=== PATIENT | female | born 1965 | race Caucasian/White ===

== ENCOUNTER 2017-06-12 14:43 | Emergency (ER) | payer BC, SELFPAY ==
[2017-06-12 14:45] VITALS: BP 162/102; PULSE 102; RESP 16; TEMP 37.2; O2SAT 97; BMI 38.9
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
[2017-06-12 16:31] VITALS: BP 103/87; PULSE 91; RESP 16; O2SAT 99
[2017-06-12] MEDS: Ibuprofen 600 MG Tablet PO (16:32)
--- NOTE | 2017-06-12 16:43 | ED.RN ---
REVIEWED D/C INSTRUCTIONS, FOLLOW UP CARE, PRESCRIPTION, AND S/S THAT WOULD WARRANT A RETURN TO THE ED WITH PT. PT VERBALIZED AN UNDERSTANDING AND DENIES FURTHER QUESTIONS FOR THIS RN. PT SKIN P/W/D, RES EVEN AND UNLABORED, PT A&O X 3, NO DISTRESS NOTED. PT AMBULATED OUT OF ED, GAIT STEADY.
== END 2017-06-12 16:44 | disposition home or self-care (01) ==
LOC: ED 16:19
PROVIDERS: Emergency Provider Emergency Medicine; Family Provider Family Medicine; PCP Family Medicine
DX: S39.012A Strain of muscle, fascia and tendon of lower back, initial encounter (principal); F32.9 Major depressive disorder, single episode, unspecified; G47.33 Obstructive sleep apnea (adult) (pediatric); Z79.899 Other long term (current) drug therapy; V43.52XA Car driver injured in collision with other type car in traffic accident, initial encounter; Y93.I9 Activity, other involving external motion; Y92.410 Unspecified street and highway as the place of occurrence of the external cause; Y99.8 Other external cause status
CPT/HCPCS: 99283

== ENCOUNTER → 2017-10-30 12:09 | Outpatient (CLI) | payer BC, SELFPAY ==
--- NOTE | 2017-10-30 12:20 | RAD_ITS ---
STUDY: BARIUM ENEMA. REASON FOR EXAM: Female, 52 years old. Incomplete colonoscopy. Possible sigmoid stricture. FLUOROSCOPY TIME (if supplied): (1:44) minutes/seconds TECHNIQUE: A scouts film was obtained. Following this, barium was introduced retrograde through the rectum. Entire colon was opacified. COMPARISON: None. Scattered diverticula are seen at that site. This may represent narrowing secondary to diverticulitis. An underlying neoplastic process should be ruled out. A follow-up CT scan is recommended. FINDINGS: On the scouts film, gas is seen throughout the colon. The patient is status post cholecystectomy. Barium was introduced retrograde through the rectum. Entire colon was opacified. Short segment narrowing of the sigmoid colon is seen. This measures 4.8 cm. Scattered diverticula are seen at that site. This may represent narrowing secondary to diverticulitis. An underlying neoplastic process should be ruled out. A follow-up CT scan is recommended. RAD/Barium Enema No Air Cont IMPRESSION: Short segment narrowing of the sigmoid colon as described with evidence of scattered sigmoid diverticula. This may represent changes secondary to diverticulitis. A neoplastic process cannot be excluded. Follow-up with a CT scan is recommended. Electronically Signed: Fabian Wilson MD at 14:03 EDT Tel [phone], Service support ,
== END ==
PROVIDERS: Family Provider Family Medicine; PCP Family Medicine; Visit Provider Internal Medicine Gastroenterology
DX: K57.30 Diverticulosis of large intestine without perforation or abscess without bleeding (principal)
CPT/HCPCS: 74270

== ENCOUNTER 2017-11-02 10:51 | Emergency (ER) | payer BC, SELFPAY ==
[2017-11-02 10:53] VITALS: BP 167/104; PULSE 118; RESP 17; TEMP 37.3; O2SAT 95; BMI 37.3
--- NOTE | 2017-11-02 11:07 | CT_ITS ---
STUDY: CT ABDOMEN AND PELVIS WITH CONTRAST REASON FOR EXAM: Female, 52 years old. 2 day history of right lower quadrant pain. Recent colonoscopy and barium enema. Narrowing of the sigmoid colon. RADIATION DOSAGE (If Supplied By Facility): CTDIvol = ( 16.53 ) mGy, DLP = ( 1247.95 ) mGycm TECHNIQUE: Transaxial images were obtained from the dome of the diaphragm to the symphysis pubis with oral contrast. 100 ml of Isovue 300 contrast was administered. Sagittal and coronal images were reconstructed. Individualized dose optimization techniques were used for this CT. COMPARISON: None. FINDINGS: Minimal increased markings at the left lung base is suggestive of left basilar atelectasis. The visualized portions of the heart are within normal limits. There is a 1 cm well-defined hypodensity in the medial aspect of the dome of the right lobe of liver most likely represent a small cyst. There are surgical clips in the gallbladder fossa consistent with a prior cholecystectomy. Normal spleen. Normal pancreas. Normal bilateral adrenal glands. Normal right kidney. Normal left kidney. There is a small hiatal hernia. Normal small intestine. There is evidence of scattered diverticula in the right hemicolon. Diffuse circumferential narrowing with inflammatory changes involving the right hemicolon and cecum. This may represent diverticulitis secondary to the right colon diverticula. A small amount of barium is seen within the proximal portion of the appendix. There is diffuse circumferential wall thickening of the sigmoid colon with multiple diverticula. No significant perisigmoid inflammatory changes are seen. There is non-visualization of the appendix. Normal abdominal aorta. Normal inferior vena cava. There is borderline retroperitoneal lymphadenopathy with enlarged nodes no greater than 10mm in the short axis diameter. Normal urinary bladder. Fibroid uterus. Normal abdominal wall. Normal osseous structures. CT/Abdomen/Pelvis WITH Contrast IMPRESSION: Inflammatory changes involving the right hemicolon worse in the region of the ascending colon and cecum with thickening. Diverticula are seen within the right hemicolon with a small amount of residual barium within it. Diverticulitis of the right; should be ruled out. Electronically Signed: Fabian Wilson MD at 13:56 EDT Tel [phone], Service support ,
--- NOTE | 2017-11-02 11:08 | ED.VISSUMM ---
- ER Visit Summary Date of Service: 11/02/17 Chief Complaint: Abdominal pain History of Present Illness: The patient is a 52 F 3 days status post colonoscopy, apparently she had some sort of stricture and was sent for a barium enema, she presents with worsening right lower quadrant abdominal pain. She does not feel febrile. No diarrhea or constipation in fact she is making bowel movements. No nausea or vomiting. No back pain or flank pain. No urinary symptoms. Physical Examination: She appears in slight distress Moist mucous membranes, no obvious facial deformity No C-spine tenderness supple neck. Regular rate and rhythm without any obvious murmurs Clear lungs bilaterally speaking in full sentences without any obvious respiratory distress Abdomen soft with right lower quadrant tenderness lateral to McBurney's, no guarding or rebound. No pelvic or suprapubic pain. No flank pain. Moves all extremities without any difficulty or pain. Skin does not show any obvious rashes or lesions, no trauma. Alert oriented ?3 with no gross focal deficit Emergency Department Course and Treatment: Patient is found to have very mild diverticulitis, she has slight leukocytosis. I will treat her with antibiotics. She has had these symptoms for some time, I will refer to general surgery for further workup. Disposition: Discharged in stable condition Impression: Acute diverticulitis This note was generated with [employer] dictation software. It may contain incorrect words, spelling, and punctuation that were not noted in review of the chart prior to signing ED Disposition - Plan for ED Patient: Disposition: Home or Assisted Living Chief Complaint: Abd Pain Instructions: ED Diverticulitis Prescriptions: Hydrocodone Bitart/Apap 5-325 [[place] 5/325] 1 - 2 tab PO Q4H PRN PRN 5 Days #12 tab PRN Reason: Pain Ciprofloxacin [Cipro] 500 mg PO BID #14 tab Metronidazole [Flagyl] 500 mg PO Q6H #56 tab Referrals: Nelson Helton MD [STAFF PHYSICIAN] - 3-5 Days
--- NOTE | 2017-11-02 11:11 | ED.DCSUM_ITS ---
- ER Visit Summary Date of Service: 11/02/17 Chief Complaint: Abdominal pain History of Present Illness: The patient is a 52 F 3 days status post colonoscopy , apparently she had some sort of stricture and was sent for a barium enema, she presents with worsening right lower quadrant abdominal pain. She does not feel febrile. No diarrhea or constipation in fact she is making bowel movements. No nausea or vomiting. No back pain or flank pain. No urinary symptoms. Physical Examination: She appears in slight distress Moist mucous membranes, no obvious facial deformity No C-spine tenderness supple neck. Regular rate and rhythm without any obvious murmurs Clear lungs bilaterally speaking in full sentences without any obvious respiratory distress Abdomen soft with right lower quadrant tenderness lateral to McBurney's, no guarding or rebound. No pelvic or suprapubic pain. No flank pain. Moves all extremities without any difficulty or pain. Skin does not show any obvious rashes or lesions, no trauma. Alert oriented ?3 with no gross focal deficit Emergency Department Course and Treatment: Patient is found to have very mild diverticulitis, she has slight leukocytosis. I will treat her with antibiotics. She has had these symptoms for some time, I will refer to general surgery for further workup. Disposition: Discharged in stable condition Impression: Acute diverticulitis This note was generated with [employer] dictation software. It may contain incorrect words, spelling, and punctuation that were not noted in review of the chart prior to signing ED Disposition - Plan for ED Patient: Disposition: Home or Assisted Living Chief Complaint: Abd Pain Instructions: ED Diverticulitis Prescriptions: Hydrocodone Bitart/Apap 5-325 [[place] 5/325] 1 - 2 tab PO Q4H PRN PRN 5 Days #12 tab PRN Reason: Pain Ciprofloxacin [Cipro] 500 mg PO BID #14 tab Metronidazole [Flagyl] 500 mg PO Q6H #56 tab Referrals: Nelson Helton MD [STAFF PHYSICIAN] - 3-5 Days
--- NOTE | 2017-11-02 11:14 | RAD_ITS ---
STUDY: X-RAY - ABDOMEN/PELVIS REASON FOR EXAM: Female, 52 years old. Upper right-sided abdominal pain. TECHNIQUE: Two AP supine views of the abdomen and pelvis. COMPARISON: None. FINDINGS: Normal visualized lung bases. Moderate amount of fecal material seen throughout the colon. Scattered barium is seen within the diverticula in the sigmoid colon. The visualized liver, spleen and kidneys are grossly normal in size and morphology. The patient is status post cholecystectomy. Normal soft tissue structures. Normal visualized osseous structures. RAD/Abdomen Single View IMPRESSION: Moderate amount of fecal material is seen in the colon. Small amount of barium is seen within scattered sigmoid diverticula. Electronically Signed: Fabian Wilson MD at 13:11 EDT Tel [phone], Service support ,
[2017-11-02] MEDS: Morphine 4 MG/ML Syringe IV (11:24)
[2017-11-02] MEDS: Ondansetron 4 MG/2 ML Vial IV (11:24)
[2017-11-02] MEDS: 0.9% Normal Saline 1,000 ML 1000 ML IV (11:24)
[2017-11-02 11:28] LABS: Bacteria 0 SEEN /hpf (None Seen); Mucous, Urine 0 SEEN /hpf (<or=2+); Red Blood Cells-Urine 0 SEEN /hpf (0-5); Squamous Epithelial Cells - UA 0 SEEN /hpf (5-10)
[2017-11-02 11:31] LABS: Color, Urine Yellow (Yellow); Glucose, Dipstick Normal (Normal); Ketone-Dipstick Negative (Negative); Leukocyte Esterase-Dipstick Negative /ul (Negative); Nitrite-Dipstick Negative (Negative); Occult Blood-Urine 25 /ul (Negative); Protein-Dipstick Negative (Negative); Specific Gravity, Urine 1.005 (1.002-1.030); Urine Bilirubin Dipstick Negative (Negative); Urine Clarity Clear (Clear); Urine Urobilinogen Normal (Normal)
[2017-11-02 11:37] LABS: Absolute Lymphocyte Count 1.41 X10^3/ul (0.83-4.51); Absolute Neutrophil Count 8.6 X10^3/uL (2.0-7.7); Basophil# 0.01 X10^3/uL; Basophil% 0.1 % (0-1); Eosinophil# 0.01 X10^3/uL; Eosinophils% 0.1 % (0-5); Hematocrit 39.4 % (37-47); Hemoglobin 12.7 g/dl (12.0-15.0); Lymphocyte # 1.41 X10^3/ul (4.0); Lymphocyte % 12.6 % (19-41); Mean Corp Hgb Conc 32.2 g/gl (32-36); Mean Corpuscular Hgb 26.6 pg (27.0-32.0); Mean Corpuscular Volume 82.4 fL (81-99); Mean Platelet Vol. 10.3 fl (6.2-12.0); Monocyte# 1.17 X10^3/uL; Monocyte% 10.4 % (0-10); Neutrophil % 76.7 % (47-70); POSITIVE COUNT NO; POSITIVE DIFFERENTIAL NO; POSITIVE MORPHOLOGY NO; Platelet Count 252 K/mm3 (150-450); RBC Distribution Width CV 15.4 % (11.6-14.6); RBC Distribution Width SD 46.5 fl (35.1-43.9); Red Blood Count 4.78 M/mm3 (4.2-5.4); White Blood Count 11.2 K/mm3 (4.4-11.0)
[2017-11-02 11:40] LABS: White Blood Cells 0-5 SEEN /hpf (0-5)
[2017-11-02 11:57] LABS: ALB/GLOB Ratio 0.6 RATIO (0.9-2.4); AST(SGOT) 19 U/L (15-37); Alanine Aminotransfer ALT/SGPT 36 U/L (13-56); Alkaline Phosphatase 116 U/L (45-117); Anion Gap 8 (5-15); BUN 8 mg/dL (7-18); BUN/Creat Ratio 10.1 RATIO (10-20); Calcium,Total 8.6 mg/dL (8.5-10.1); Chloride 106 mmol/L (98-107); Creatinine, Serum 0.79 mg/dL (0.55-1.02); EST Glomerular Filtration Rate 80 mL/min (>60); Est Glom Filt Rate - Afr Amer 97 mL/min (>60); Estimated Creatinine Clearance 64.39 ml/min; Globulin 4.9 g/dL (2.2-4.2); Glucose 87 mg/dL (74-106); Lipase 126 U/L (73-393); Potassium 3.5 mmol/L (3.5-5.1); Protein, Total 7.9 g/dL (6.4-8.2); Sodium Level 141 mmol/L (136-145)
[2017-11-02 13:56] VITALS: BP 160/89
[2017-11-02 14:31] VITALS: BP 153/84; PULSE 78; RESP 18
== END 2017-11-02 14:32 | disposition home or self-care (01) ==
PROVIDERS: Emergency Provider Emergency Medicine; Family Provider Family Medicine; PCP Family Medicine
DX: K57.92 Diverticulitis of intestine, part unspecified, without perforation or abscess without bleeding (principal)
CPT/HCPCS: 74018; 74177; 80053; 81001; 83690; 85025; 96361; 96374; 96375; 99284; J7030; Q9967; J2405

== ENCOUNTER 2018-01-14 05:42 | Inpatient (IN) | payer BC, SELFPAY ==
[2018-01-08 10:54] VITALS: BP 143/91; PULSE 84; RESP 17; TEMP 37.4; O2SAT 97; BMI 38.1
[2018-01-14] VITALS (13 sets, daily range): BP systolic 105–148; BP diastolic 70–99; PULSE 83–108; RESP 14–18; TEMP 36.6–37.1; O2SAT 92–100; BMI 38.1; BMI 35.8
[2018-01-14] MEDS: Gabapentin 600 MG Tablet PO (06:43)
[2018-01-14] MEDS: Acetaminophen 500 MG Tablet 1000 MG PO ×3 (06:43→23:07)
[2018-01-14 06:56] LABS: Bedside Glucose 98 mg/dL (70-110)
--- NOTE | 2018-01-14 07:30 | OV_PTH ---
PATIENT: REJI FELIX LOC: [facility] U#:[id number] AGE/SX: 52/F ROOM: [facility]321 RE01/14/[address]: Dr. Nelson Helton MD : 1965 BED: 1 DIS: 01/22/2018 SPEC #: [id number] RECD: 01/14/18 14:50 STATUS: EDILSON REKenzie #: [id number] JHON: 01/14/18 07:[address]: Nelson Helton DEPT: SURGICAL PATHOLOGY RECD BY: Nelson Walker ENTERED: 01/15/18 04:38 SP TYPE: OVARY OTHR DR: Radha Lujan, INCUBATOR OPERATOR-C Tissues: A - OVARIAN CYST B - Colon, NOS C - Colon, NOS D - Colon, NOS E - Colon, NOS Procedures: Surgery Specimen Level III Surgery Specimen Level IV Surgery Specimen Level V HEADER OPERATION: Laparoscopic partial right hemicolectomy, laparoscopic right PRE-OP DIAGNOSIS: Diverticulitis, partial intestinal obstruction TISSUE SUBMITTED: A ? Right fallopian tube, ovary and cyst, B ? Sigmoid colon, C ? Proximal end sigmoid colon, D ? Distal end sigmoid colon, E ? Right colon and staple line MICROSCOPIC DIAGNOSIS A. Right fallopian tube, ovary and cyst: Fallopian tube - no pathologic diagnosis. Cyst ? simple cyst, consistent with paratubal cyst. Ovary ? mesothelial inclusion cyst with focal calcifications. B. Sigmoid colon, colectomy: Diverticulosis and diverticulitis. Pericolonic lymph node with reactive changes. A fibrous nodule, pericolonic adipose tissue with focal calcification. Smaller segment of bowel, no pathologic diagnosis. C. Proximal end sigmoid colon: Colonic donut with focal mucosal congestion and hemorrhage. D. Distal end sigmoid colon: Colonic donut, no pathologic diagnosis. E. Right colon and staple line: Diverticulosis and diverticulitis. Appendix, no pathologic diagnosis. Pericolonic lymph node with reactive changes. Staple line, no pathologic diagnosis. SJ:ck 01/16/18 MICROSCOPIC DESCRIPTION Slides are reviewed. GROSS DESCRIPTION A - Received in fixative is one container labeled with the patient's name and designated right fallopian tube, cyst and ovary. The specimen consists of fallopian tube, detached fragments of fimbrial end of fallopian tube, detached cyst and ovary. The fallopian tube measures 3 cm in length and 0.6 cm in diameter. Sections reveal unremarkable cut surfaces. The detached fragment of fallopian tube measures 1.5 x 1 x 0.3 cm. The cyst measures 2 x 1.5 x 1.5 cm. It contains clear fluid. The cyst wall is smooth without any papillation. The ovary measures 2 x 1.5 x 1.3 cm. Sections reveal unremarkable cut surfaces. Banana Grader sections are submitted in three cassettes as follows: 1 ? fallopian tube including fimbrial end, 2 ? cyst, 3 ? ovary. / : 01/14/18 B - Received in fixative is one container labeled with the patient's name and designated sigmoid colon. The specimen consists of previously opened segment of colon with attached pericolonic adipose tissue measuring 15 cm in length. No mucosal lesion is identified. Sections reveal multiple diverticula. A few of the diverticula appear to rupture. A few of the diverticula are also filled with fecal material. Sections of the pericolonic adipose tissue do not reveal obviously enlarged lymph nodes. Also present in the container is a segment of bowel with attached adipose tissue measuring 4 cm in length. Both resection margins are stapled. No mucosal lesion is identified. Banana Grader sections are submitted in six cassettes as follows: 1-5 ? largest segment of colon (1 - resection margins, stapled resection margin is inked black, 2-4 ? diverticula, 5 ? pericolonic adipose tissue with possible lymph node), 6 ? smaller segment of bowel. / : 01/15/18 C - Received in fixative is one container labeled with the patient's name and designated proximal end sigmoid colon. The specimen consists of a donut-shaped piece of colonic tissue measuring 2 x 2 x 1 cm. No mass lesion is identified. The entire specimen is submitted in one cassette. / : 01/14/18 D - Received in fixative is one container labeled with the patient's name and designated distal and sigmoid colon. The specimen consists of a colonic tissue measuring 4 x 1 x 0.5 cm. Multiple lesions are noted. Banana Grader sections are submitted in one cassette. / : 01/14/18 E - Received in fixative is one container labeled with the patient's name and designated right colon and staple line. The specimen consists of a right hemicolectomy specimen consisting of cecum with ascending colon, segment of small intestine and also an appendix. The cecum with ascending colon measures 15 cm in length. The segment of small intestine measures 20 cm in length and the appendix measures 6 cm in length and 0.5 cm in diameter. Both resection margins are stapled. Also present in the container are two donut-shaped pieces of tissue consisting of staple line measuring 2.5 x 1 x 1 cm and 4 x 1.5 x 2.5 cm. Sections of the appendix reveal pin-point lumen. No mucosal lesion is identified. Sections reveal a few diverticula. No obviously ruptured diverticula are noted. The serosal surface 4 cm away from the distal resection margin shows congested area. The serosal surface close to the cecum also shows focally congested taz. Sections of the pericolonic adipose tissue reveal a large lymph node with hemorrhagic center measuring 1.5 cm in greatest dimension. Banana Grader sections are submitted in 12 cassettes as follows: 1-8 ? colectomy specimen (1 ? proximal and distal resection margins, 2 ? appendix, 3-5 ? serosal surface with congested area, 6 - pest control service representative section of small and large intestine, 7 ? ileocecal valve, 8 ? pericolonic lymph node), 9 ? pest control service representative sections staple lines, 10-12 - diverticula. / SJ:ck 01/15/18 TC:5 CPT: 79318 x2, 77283, 87076 x2
[2018-01-14] MEDS: Lidocaine/D5W 2,000 MG/250 ML IV.SOLN 28.38 MG IV (07:40)
[2018-01-14] MEDS: Lubricating Jelly 60 GM Tube 30 GM TOPICAL (08:20)
[2018-01-14] MEDS: Bupivacaine Mpf 0.5% 30 ML VIAL (12:13)
--- NOTE | 2018-01-14 12:16 | OP.PCM_ITS ---
Report of Operation Date of Procedure: 01/14/18 Pre-Operative Diagnosis: low sigmoid diverticular stricture, right sided diverticulitis Post-Operative Diagnosis: low sigmoid diverticular stricture, right sided diverticulitis Surgery/Procedure Performed:: lap low anterior resection with 29CEEA stapled anastomosis, laparoscopic right hemicoletomy. medical transcription supervisor: Ashley Krishnamurthy Type of Anesthesia:: General Anesthesiologist: Ezequiel Garzon - ASA3 Specimen's removed: right colon, sigmoid x 2 Drains: cole - 200 Estimated Blood Loss (mL): 150 Fluids Replaced: 1400 Description of Procedure: The patient was brought to the operating suite. Sign in was performed verifying patient, site, procedure, position, and DVT prophylaxis with SCDs. Patient received Cefotetan 2gm. Preoperative bowel prep of mechanical and antibiotic comprised of GoLYTELY and then neomycin and Flagyl 1 g 3 doses evening before was given. Following induction of general anesthetic, the patient was placed in a modified lithotomy position and care being taken to or by pressure points in the legs and arms. An upper body strap was placed and a upper body warmer was placed. A Cole catheter was placed. A rectal washout was performed with dilute Betadine solution. The patient?s abdomen and perineal area were then prepped and draped in the usual fashion. Timeout was performed verifying patient, site, position. Local anesthetic was injected above the umbilicus. Incision made and dissection carried down to the umbilical root fascia. 2 stay sutures were placed. Incision made in the fascia, the peritoneum entered under direct visualization. A 10 mm Fenton trocar was inserted and secured with the stay sutures. Pneumoperitoneum to 15 mmHg was insufflated. 3 5mm ports were placed in the midline and later in the left paramedian position and a 10/12 port were placed in the right lower quadrant inferior laterally. Adhesions were taken down using Harmonic scalpel. Visual inspection revealed a normal-appearing liver with no significant abnormalities. The bulky sigmoid with diverticulitis was seen in the pelvis with adhesions to the left lower quadrant. These adhesions were taken down bluntly and sharply and using the Harmonic scalpel. Once this was completed, mobilization the avascular plane was undertaken from the ascending colon down to the area of the mid sigmoid with care taken at mobilization of the level of the iliac vessels then further down to the left lateral rectal peritoneal reflection. As mobilization progressed, the left and right ureters were able to be visualized and manipulated assuring that the ureters were intact.. Once this left-sided mobilization was undertaken, a window was made in to the bare area just proximal to the inferior mesenteric vessels As dissection was continued, the KIP branches were identified and divided with the Harmonic scalpel. Once this was fully divided and surrounded with dissection carried down to the area posterior to the rectum, a 60 mm echelon stapler with a thick load was placed and fired to transect the rectum. Mobilization the avascular plane was undertaken from the base of the cecum up and around the hepatic flexure. Division of the lesser sac from the midline to the hepatic flexure was undertaken. When this was fully mobilized. The duodenum was visualized from the right flank region. Next, the terminal ileum area was brought up and a cleavage point noted in the mesentery. Harmonic Scalpel was used to create a window in the terminal ileal mesentery and division was taken down to the ileocolic root. Next the transverse colon was grasped and the vasculature coming from the middle colic vessel was identified. A window was made in the bare area proximal to the middle colic vessels just overlying the duodenal sweep. This was also fully divided. Dissection was then carried out at the ileal colic vessel root. The artery and vein were identified and doubly clipped proximally and doubly clipped distally with Hem-o- andreea clips. With full dissection of the mesentery and full mobilization the colon, the umbilical incision was extended and a wound protector placed. The sigmoid colon were delivered through the wound protector. At this point at the planned transection point of the proximal sigmoid colon, the pericolonic were fully mobilized to the margin of the bowel using the harmonic scalpel. The bowel was transected family with a 10 blade scalpel. A 29 mm CEA circular stapler anvil was then placed in the descending colon region and a 2-0 Prolene pursestring suture was used to close the bowel around the anvil. The bowel did easily make it to the pelvis, At this point, I proceeded down to the rectum. Rigid proctoscopy was performed after flooding the pelvis with saline. Insufflation demonstrated no leak at the rectal staple line - but there did seem to be a narrowing just distal to the staple line. Following this, the rectal stump was further dissected and redivided with a thick load echelon stapler. Repeat proctoscopy was performed.. The staple line was felt to be approximately 15 cm. Next the 29 CEA stapler was lubricated and placed through the rectum up to the staple line. The spike was then opened just anterior to the previous echelon stapler line and the anvil properly seated onto the stapler and brought down to mid gap. The stapler was fired released and withdrawn from the rectum. The proximal and distal doughnuts were noted to be intact. Repeat proctoscopy was again performed again with the pelvis being flooded with saline. Air left in the rectum with insufflation and there was no intra-abdominal leakage noted. The anastomosis was noted to be at 15 cm from the anal verge. The terminal ileum and cecum ascending colon part of the transverse colon were delivered through the wound protector. Complete division of the mesentery to the bowel was undertaken at both sites. The bowel was transected with an intestinal load echelon stapler. On this a functional stapled end-to-end anastomosis was performed between the ileum and transverse colon with an echelon stapler. The staple line was checked for hemostasis and following this the anastomosis closed with a TA stapler creating a wide triangle opening that was easily palpable. A 3-0 silk suture was used to take tension off the apex of the staple line. Gown and gloves were changed. Pneumoperitoneum was released and the umbilical incision was closed with running 0 PDS sutures with the 2 sutures meeting and closed just above the umbilicus. Pneumoperitoneum was reestablished. The right lower quadrant fascial defect was closed with a running 0 PDS suture. Visual inspection revealed no material adhered to the midline closure. The 5mm ports were removed under direct visualization with no signs of bleeding. Pneumoperitoneum was released. Right lower quadrant fascial suture was secured. Subcutaneous tissue at the level of the umbilicus reapproximated with interrupted 3-0 Vicryl sutures. Skin was closed with interrupted and running 4- 0 Monocryl subcuticular sutures. Steri-Strips and bandages were applied. The patient was taken from lithotomy position and placed in the standard supine position. All sponge and instrument counts were correct. The patient was extubated. The patient was brought to recovery room in stable condition. - Admit VTE Documentation VTE Present on Admission: No VTE Mechan Device Prophylaxis: SCD's VTE Pharm Prophylaxis ordered?: No
[2018-01-14] MEDS: Lactated Ringers 1,000 ML 40 ML IV ×2 (13:10→23:57)
[2018-01-14] MEDS: Ketorolac 15 MG/ML Vial IV ×2 (18:30→23:07)
[2018-01-14] MEDS: busPIRone 15 MG TABLET 7.5 MG PO (22:53)
[2018-01-15] MEDS: Ketorolac 15 MG/ML Vial IV ×3 (05:40→18:19)
[2018-01-15] MEDS: Acetaminophen 500 MG Tablet 1000 MG PO ×2 (05:40→11:55)
[2018-01-15 05:47] VITALS: BP 127/68; PULSE 81; RESP 18; TEMP 36.9; O2SAT 95
[2018-01-15 06:29] LABS: Hematocrit 36.5 % (37-47); Hemoglobin 11.9 g/dl (12.0-15.0); Mean Corp Hgb Conc 32.6 g/gl (32-36); Mean Corpuscular Hgb 27.5 pg (27.0-32.0); Mean Corpuscular Volume 84.3 fL (81-99); Mean Platelet Vol. 11.4 fl (6.2-12.0); Platelet Count 235 K/mm3 (150-450); RBC Distribution Width SD 45.7 fl (35.1-43.9); Red Blood Count 4.33 M/mm3 (4.2-5.4); White Blood Count 12.4 K/mm3 (4.4-11.0)
--- NOTE | 2018-01-15 06:29 | PCM.PN.SRG ---
Subjective: pain approximately 3 out of 10, doing well - Physical Exam General: Alert, Oriented x3 Lungs: Clear to auscultation, Normal air movement Cardiovascular: Regular rate, No murmurs Abdomen: Soft, Non Tender, Bowel Sounds Not Present Vital Signs Temp Pulse Resp BP Pulse Ox 98.4 F 81 18 127/68 H 95 01/15/18 05:47 01/15/18 05:47 01/15/18 05:47 01/15/18 05:47 01/15/18 05:47 Oxygen Flow Rate (L/min) 6 Oxygen Delivery Method Room Air Weight: 94.6 kg Body Mass Index (BMI) 35.8 Intake and Output for Last 24 Hours 01/13/18 01/14/18 01/15/18 23:59 23:59 23:59 Intake Total 1885 / 1885 937 / 937 Output Total 1000 / 1000 1300 / 1300 Balance 885 / 885 -363 / -363 Laboratory Tests Past 24 Hrs 01/15/18 01/15/18 05:54 05:54 WBC Pending RBC Pending Hgb Pending Hct Pending MCV Pending MCH Pending MCHC Pending RDW Pending RDW Differential Pending Plt Count Pending Sodium Pending Potassium Pending Chloride Pending Carbon Dioxide Pending Anion Gap Pending BUN Pending Creatinine Pending Est GFR (MDRD) Af Amer Pending Est GFR (MDRD) Non-Af Pending BUN/Creatinine Ratio Pending Glucose Pending Calcium Pending POC Glucose 01/14/18 06:29 POC Glucose 98 Medical Necessity - Tobacco Use Smoking Status: Never smoker Assessment/Plan postoperative day #1 status post laparoscopic low anterior resection and laparoscopic right hemicolectomy for 2 sites of diverticulitis. The patient currently on ERAS protocol. Will encourage patient to be careful with oral intake due to some degree of burping and no bowel sounds. We'll encourage ambulation. Will DC Garnica catheter today. Encourage incentive spirometer use.
[2018-01-15 06:30] LABS: Scan Indicated on CBC? Y/N NO
[2018-01-15 06:38] LABS: Anion Gap 8 (5-15); BUN 11 mg/dL (7-18); BUN/Creat Ratio 11.3 RATIO (10-20); Calcium,Total 7.9 mg/dL (8.5-10.1); Chloride 108 mmol/L (98-107); Creatinine, Serum 0.98 mg/dL (0.55-1.02); EST Glomerular Filtration Rate 63 mL/min (>60); Est Glom Filt Rate - Afr Amer 76 mL/min (>60); Estimated Creatinine Clearance 56.67 ml/min; Glucose 95 mg/dL (74-106); Potassium 3.9 mmol/L (3.5-5.1); Sodium Level 142 mmol/L (136-145)
--- NOTE | 2018-01-15 09:40 | CASEMGMT ---
RN JESSICA Face to Face with patient for initial transition planning/care coordination assessment. RN CM introduced self and role at [facility]. Patient lying in bed, alert and oriented. Patient willing to participate in assessment and is able to answer all questions appropriately. Care providers, pharmacy, and demographics verified. Patient lives with in a 1 story house with 6 stair with railing to enter home. Patient is independent at home. DME consists of a CPap machine. Patient wishes to discharge home, denies need for home health at this time. Patient states she has no further needs or concerns at this time. CM to follow for discharge planning needs that may arise. Disposition Plan: Patient to discharge home with family support and follow-up plans in place. Charla SHRESTHA, RN, CM
[2018-01-15 10:00] VITALS: BP 110/78; PULSE 98; RESP 18; TEMP 37.4; O2SAT 95
[2018-01-15] MEDS: busPIRone 15 MG TABLET 7.5 MG PO ×2 (10:02→21:26)
[2018-01-15] MEDS: Pantoprazole Sodium 20 MG Tablet PO (10:03)
[2018-01-15] MEDS: Enoxaparin 40 MG/0.4 ML Syringe SC (10:03)
[2018-01-15] MEDS: buPROPion (XL) 300 MG TABLET.XL PO (10:04)
[2018-01-15 11:23] VITALS: O2SAT 97
[2018-01-15 11:58] VITALS: BP 135/73; PULSE 97; RESP 18; TEMP 36.8; O2SAT 95
[2018-01-15 15:53] VITALS: BP 124/74; PULSE 104; RESP 18; TEMP 36.7; O2SAT 94
[2018-01-15 18:16] VITALS: BP 157/77; PULSE 74; RESP 18; TEMP 36.9; O2SAT 97
[2018-01-16 00:49] VITALS: BP 151/74; PULSE 79; RESP 16; TEMP 37.3; O2SAT 97
[2018-01-16] MEDS: Acetaminophen 500 MG Tablet 1000 MG PO ×4 (00:53→18:23)
[2018-01-16] MEDS: Ketorolac 15 MG/ML Vial IV (00:54)
[2018-01-16 05:16] VITALS: BP 133/88; PULSE 91; RESP 16; TEMP 37.1; O2SAT 96
[2018-01-16 10:20] VITALS: BP 149/92; PULSE 99; RESP 18; TEMP 36.8; O2SAT 97
[2018-01-16] MEDS: buPROPion (XL) 300 MG TABLET.XL PO (10:24)
[2018-01-16] MEDS: Pantoprazole Sodium 20 MG Tablet PO (10:24)
[2018-01-16] MEDS: busPIRone 15 MG TABLET 7.5 MG PO (10:24)
[2018-01-16] MEDS: Enoxaparin 40 MG/0.4 ML Syringe SC (10:25)
[2018-01-16 12:55] VITALS: BP 160/87; PULSE 108; RESP 18; TEMP 36.7; O2SAT 95
--- NOTE | 2018-01-16 18:09 | PCM.PN.SRG ---
Subjective: minimal pain, POD #2 - Physical Exam General: Alert, Oriented x3 Lungs: Clear to auscultation, Normal air movement Cardiovascular: Regular rate, No murmurs Abdomen: Bowel Sounds Present, Non Tender, Non-Distended, Hypoactive Bowel Sounds Vital Signs Temp Pulse Resp BP Pulse Ox 98.1 F 108 H 18 160/87 H 95 01/16/18 12:55 01/16/18 12:55 01/16/18 12:55 01/16/18 12:55 01/16/18 12:55 Oxygen Flow Rate (L/min) 6 Oxygen Delivery Method Room Air Weight: 94.6 kg Body Mass Index (BMI) 35.8 Intake and Output for Last 24 Hours 01/14/18 01/15/18 01/16/18 23:59 23:59 23:59 Intake Total 1885 / 1885 3101 / 3101 769 / 769 Output Total 1000 / 1000 3850 / 3850 2900 / 2900 Balance 885 / 885 -749 / -749 -2131 / -2131 Medical Necessity - Tobacco Use Smoking Status: Never smoker Assessment/Plan postoperative day #2 status post laparoscopic low anterior resection and laparoscopic right hemicolectomy for 2 sites of diverticulitis. The patient currently on ERAS protocol. Will encourage patient to be careful with oral intake due to some degree of burping but now few bowel sounds and scant liquid stools but not much flatus. We'll encourage ambulation. voiding well after Garnica catheter removed. Encourage incentive spirometer use.
[2018-01-16] MEDS: Ondansetron ODT 4 MG Tablet PO (18:25)
[2018-01-16 18:36] VITALS: BP 157/96; PULSE 104; RESP 18; TEMP 36.8; O2SAT 96
[2018-01-16 20:56] VITALS: BP 146/87; PULSE 113; RESP 18; TEMP 36.9; O2SAT 97
[2018-01-17] VITALS (8 sets, daily range): BP systolic 140–164; BP diastolic 78–100; PULSE 97–117; RESP 16–18; TEMP 36.6–36.9; O2SAT 95–99
[2018-01-17] MEDS: Acetaminophen 500 MG Tablet 1000 MG PO ×4 (02:44→18:26)
[2018-01-17 07:21] LABS: Absolute Lymphocyte Count 1.24 X10^3/ul (0.83-4.51); Absolute Neutrophil Count 10.3 X10^3/uL (2.0-7.7); Basophil# 0.02 X10^3/uL; Basophil% 0.2 % (0-1); Hematocrit 42.6 % (37-47); Lymphocyte # 1.24 X10^3/ul (4.0); Mean Corp Hgb Conc 32.9 g/gl (32-36); Mean Corpuscular Hgb 27.2 pg (27.0-32.0); Mean Corpuscular Volume 82.7 fL (81-99); Mean Platelet Vol. 10.5 fl (6.2-12.0); Monocyte% 7.2 % (0-10); Neutrophil # 10.27 X10^3/uL (2.7-7.7); Neutrophil % 82.4 % (47-70); Platelet Count 292 K/mm3 (150-450); RBC Distribution Width CV 14.9 % (11.6-14.6); RBC Distribution Width SD 44.1 fl (35.1-43.9); Red Blood Count 5.15 M/mm3 (4.2-5.4); White Blood Count 12.5 K/mm3 (4.4-11.0)
[2018-01-17 07:23] LABS: POSITIVE COUNT NO; POSITIVE DIFFERENTIAL NO; POSITIVE MORPHOLOGY NO
[2018-01-17 07:47] LABS: ALB/GLOB Ratio 0.7 RATIO (0.9-2.4); AST(SGOT) 19 U/L (15-37); Alanine Aminotransfer ALT/SGPT 25 U/L (13-56); Alkaline Phosphatase 110 U/L (45-117); Anion Gap 12 (5-15); BUN 13 mg/dL (7-18); Chloride 104 mmol/L (98-107); Creatinine, Serum 0.81 mg/dL (0.55-1.02); EST Glomerular Filtration Rate 78 mL/min (>60); Est Glom Filt Rate - Afr Amer 94 mL/min (>60); Estimated Creatinine Clearance 68.56 ml/min; Globulin 4.4 g/dL (2.2-4.2); Glucose 94 mg/dL (74-106); Phosphorus 4.1 mg/dL (2.5-4.9); Protein, Total 7.4 g/dL (6.4-8.2); Sodium Level 141 mmol/L (136-145)
[2018-01-17] MEDS: Metoprolol(XL)Succ 25 MG Tablet PO ×2 (08:25→22:45)
[2018-01-17] MEDS: Ondansetron ODT 4 MG Tablet PO (08:26)
[2018-01-17] MEDS: Pantoprazole Sodium 20 MG Tablet PO (10:09)
[2018-01-17] MEDS: busPIRone 15 MG TABLET 7.5 MG PO ×2 (10:09→22:46)
[2018-01-17] MEDS: Enoxaparin 40 MG/0.4 ML Syringe SC (10:09)
[2018-01-17] MEDS: buPROPion (XL) 300 MG TABLET.XL PO (10:10)
--- NOTE | 2018-01-17 18:28 | PN.SURG_ITS ---
Subjective: no significant flatus - Physical Exam General: Alert, Oriented x3, Cooperative Lungs: Clear to auscultation, Normal air movement Cardiovascular: Regular rate, No murmurs Abdomen: Bowel Sounds Present, Soft, Non Tender, Hypoactive Bowel Sounds Vital Signs Temp Pulse Resp BP Pulse Ox 98.1 F 101 H 18 146/78 H 99 01/17/18 14:30 01/17/18 14:30 01/17/18 14:30 01/17/18 14:30 01/17/18 14:30 Oxygen Flow Rate (L/min) 6 Oxygen Delivery Method Room Air Weight: 94.6 kg Body Mass Index (BMI) 35.8 Intake and Output for Last 24 Hours 01/15/18 01/16/18 01/17/18 23:59 23:59 23:59 Intake Total 3101 / 3101 1244 / 1244 1230 / 1230 Output Total 3850 / 3850 4200 / 4200 300 / 300 Balance -749 / -749 -2956 / -2956 930 / 930 Laboratory Tests Past 24 Hrs 01/17/18 01/17/18 07:05 07:05 WBC 12.5 H RBC 5.15 Hgb 14.0 Hct 42.6 MCV 82.7 MCH 27.2 MCHC 32.9 RDW 14.9 H RDW Differential 44.1 H Plt Count 292 MPV 10.5 Immature Gran % (Auto) 0.200 Neut % (Auto) 82.4 H Lymph % (Auto) 10.0 L [place] % (Auto) 7.2 Eos % (Auto) 0.0 Baso % (Auto) 0.2 Absolute Neuts (auto) 10.3 H Absolute Lymphs (auto) 1.24 Total Counted Not Reportable Sodium 141 Potassium 4.0 Chloride 104 Carbon Dioxide 25.0 Anion Gap 12 BUN 13 Creatinine 0.81 Estim Creat Clear Calc 68.56 Est GFR (MDRD) Af Amer 94 Est GFR (MDRD) Non-Af 78 BUN/Creatinine Ratio 16.0 Glucose 94 Calcium 9.0 Phosphorus 4.1 Magnesium 2.0 Total Bilirubin 0.70 AST 19 ALT 25 Alkaline Phosphatase 110 Total Protein 7.4 Albumin 3.0 L Globulin 4.4 H Albumin/Globulin Ratio 0.7 L Medical Necessity - Tobacco Use Smoking Status: Never smoker Assessment/Plan postoperative day #3 status post laparoscopic low anterior resection and laparoscopic right hemicolectomy for 2 sites of diverticulitis. The patient currently on ERAS protocol. Will encourage patient to be careful with oral intake due to some degree of burping but now few bowel sounds and scant liquid stools but not much flatus. We'll encourage ambulation. voiding well after Garnica catheter removed. Encourage incentive spirometer use. elevated blood pressure and tachycardic for the last few days. Patient was also noted to be hypertensive preoperatively. while she has not been on antihypertensive medications in the past, she notes that her blood pressure fluctuates. her electrolytes are unremarkable. She is not complaining of pain. We will start metoprolol and follow her BP.
[2018-01-18] VITALS (11 sets, daily range): BP systolic 113–157; BP diastolic 60–84; PULSE 85–102; RESP 16–20; TEMP 36.8–37.4; O2SAT 92–98
[2018-01-18] MEDS: Ondansetron ODT 4 MG Tablet PO ×2 (01:30→09:28)
[2018-01-18] MEDS: Ondansetron 4 MG/2 ML Vial IV (01:41)
[2018-01-18 01:45] LABS: Bedside Glucose 90 mg/dL (70-110)
[2018-01-18] MEDS: proCHLORPERazine 10 MG/2 ML Vial IM (02:12)
[2018-01-18] MEDS: 0.9% Normal Saline 1,000 ML 25 ML IV (02:14)
--- NOTE | 2018-01-18 05:51 | CT_ITS ---
STUDY: CT ABDOMEN AND PELVIS WITHOUT CONTRAST REASON FOR EXAM: Female, 52 years old. Abdominal pain, nausea and vomiting. Patient is status post right-sided hemicolectomy for diverticulitis 4 days ago. RADIATION DOSAGE (If Supplied By Facility): CTDIvol = ( 14.58 ) mGy, DLP = ( 790.21 ) mGycm TECHNIQUE: Transaxial images were obtained from the dome of the diaphragm to the symphysis pubis without oral contrast, and without intravenous contrast. Sagittal and coronal images were reconstructed. Individualized dose optimization techniques were used for this CT. COMPARISON: CT of the abdomen and pelvis dated November 02, 2017. FINDINGS: There is left basilar subsegmental atelectasis. The visualized portions of the heart are within normal limits. There is a small lucency in the subcapsular region of the right lobe of liver measuring approximately 8.9 mm. This likely represents a cyst but is too small to characterize. There is perihepatic fluid. The liver has a grossly normal appearance. There are surgical clips in the gallbladder fossa consistent with a prior cholecystectomy. Normal spleen. There is a small splenule near the splenic hilum. There is diffuse atrophy of the pancreas. Normal bilateral adrenal glands. Normal right kidney. Normal left kidney. The stomach is distended with fluid. There is dilated small bowel with a maximum transverse dimension of approximately 4.2 cm. There appears to be a transition in the right side of the abdomen possibly near the colectomy site where there are multiple surgical clips. The colon is not dilated. Surgical sutures are also visible at the rectosigmoid junction suggesting patient has had a partial resection of this area as well. The remaining colon has scattered diverticula. There is non-visualization of the appendix. Normal abdominal aorta. Normal inferior vena cava. Normal retroperitoneum. Normal urinary bladder. There is a calcified nodule within the anterior uterine myometrium measuring approximately 1.5 cm. This may represent a uterine leiomyoma. The uterus is a normal appearance otherwise. Both adnexal areas are within normal limits. Normal abdominal wall. There are multilevel degenerative changes of the facet joints of the lumbar spine. CT/Abdomen/Pelvis without Cont IMPRESSION: 1. CT findings suggest sequela of small bowel obstruction status post right-sided hemicolectomy. 2. There has also been partial colon resection of the rectosigmoid junction. 3. Cholecystectomy. 4. There is a small amount of perihepatic fluid possibly related to recent surgery. Electronically Signed: Taylor Bloom MD at 7:22 EDT , Service support ,
--- NOTE | 2018-01-18 05:54 | PN.SURG_ITS ---
Subjective: vomitind overnight, feeling more uncomfortable, passing flatus - Physical Exam General: Alert, Oriented x3, Cooperative Lungs: Clear to auscultation, Normal air movement Cardiovascular: Regular rate, No murmurs Abdomen: Soft, Non Tender, Hypoactive Bowel Sounds Vital Signs Temp Pulse Resp BP Pulse Ox 98 F 97 16 140/100 H 95 01/17/18 22:30 01/17/18 22:45 01/17/18 22:30 01/17/18 22:30 01/17/18 22:30 Oxygen Flow Rate (L/min) 6 Oxygen Delivery Method Room Air Weight: 94.6 kg Body Mass Index (BMI) 35.8 Intake and Output for Last 24 Hours 01/16/18 01/17/18 01/18/18 23:59 23:59 23:59 Intake Total 1244 / 1244 1230 / 1230 300 / 300 Output Total 4200 / 4200 300 / 300 Balance -2956 / -2956 930 / 930 300 / 300 Laboratory Tests Past 24 Hrs 01/17/18 01/17/18 07:05 07:05 WBC 12.5 H RBC 5.15 Hgb 14.0 Hct 42.6 MCV 82.7 MCH 27.2 MCHC 32.9 RDW 14.9 H RDW Differential 44.1 H Plt Count 292 MPV 10.5 Immature Gran % (Auto) 0.200 Neut % (Auto) 82.4 H Lymph % (Auto) 10.0 L [place] % (Auto) 7.2 Eos % (Auto) 0.0 Baso % (Auto) 0.2 Absolute Neuts (auto) 10.3 H Absolute Lymphs (auto) 1.24 Total Counted Not Reportable Sodium 141 Potassium 4.0 Chloride 104 Carbon Dioxide 25.0 Anion Gap 12 BUN 13 Creatinine 0.81 Estim Creat Clear Calc 68.56 Est GFR (MDRD) Af Amer 94 Est GFR (MDRD) Non-Af 78 BUN/Creatinine Ratio 16.0 Glucose 94 Calcium 9.0 Phosphorus 4.1 Magnesium 2.0 Total Bilirubin 0.70 AST 19 ALT 25 Alkaline Phosphatase 110 Total Protein 7.4 Albumin 3.0 L Globulin 4.4 H Albumin/Globulin Ratio 0.7 L POC Glucose 01/18/18 01:23 POC Glucose 90 Medical Necessity - Tobacco Use Smoking Status: Never smoker Assessment/Plan postoperative day #4 status post laparoscopic low anterior resection and laparoscopic right hemicolectomy for 2 sites of diverticulitis. The patient currently on ERAS protocol. vomited and more bowel sounds and scant liquid stools. Will restart IV fluidsm repeat labs, CT abdomen - We'll encourage ambulation. voiding well after Garnica catheter removed. Encourage incentive spirometer use. elevated blood pressure and tachycardic for the last few days. Patient was also noted to be hypertensive preoperatively. while she has not been on antihypertensive medications in the past, she notes that her blood pressure fluctuates. her electrolytes are unremarkable. She is not complaining of pain. We will start metoprolol and follow her BP.
[2018-01-18] MEDS: proCHLORPERazine 10 MG/2 ML Vial 5 MG IV (06:55)
[2018-01-18 07:07] LABS: Absolute Lymphocyte Count 1.47 X10^3/ul (0.83-4.51); Absolute Neutrophil Count 10.3 X10^3/uL (2.0-7.7); Basophil# 0.02 X10^3/uL; Basophil% 0.2 % (0-1); Hematocrit 43.8 % (37-47); Hemoglobin 14.3 g/dl (12.0-15.0); Lymphocyte # 1.47 X10^3/ul (4.0); Lymphocyte % 11.7 % (19-41); Mean Corp Hgb Conc 32.6 g/gl (32-36); Mean Corpuscular Hgb 27.2 pg (27.0-32.0); Mean Corpuscular Volume 83.4 fL (81-99); Mean Platelet Vol. 10.1 fl (6.2-12.0); Monocyte# 0.73 X10^3/uL; Monocyte% 5.8 % (0-10); Neutrophil # 10.28 X10^3/uL (2.7-7.7); Neutrophil % 82.1 % (47-70); Platelet Count 269 K/mm3 (150-450); RBC Distribution Width CV 14.6 % (11.6-14.6); RBC Distribution Width SD 44.7 fl (35.1-43.9); Red Blood Count 5.25 M/mm3 (4.2-5.4); White Blood Count 12.5 K/mm3 (4.4-11.0)
[2018-01-18 07:11] LABS: POSITIVE COUNT NO; POSITIVE DIFFERENTIAL NO; POSITIVE MORPHOLOGY NO
[2018-01-18 07:35] LABS: ALB/GLOB Ratio 0.6 RATIO (0.9-2.4); AST(SGOT) 105 U/L (15-37); Alanine Aminotransfer ALT/SGPT 89 U/L (13-56); Alkaline Phosphatase 179 U/L (45-117); Anion Gap 14 (5-15); BUN 17 mg/dL (7-18); Calcium,Total 9.2 mg/dL (8.5-10.1); Chloride 99 mmol/L (98-107); Creatinine, Serum 0.85 mg/dL (0.55-1.02); EST Glomerular Filtration Rate 74 mL/min (>60); Est Glom Filt Rate - Afr Amer 90 mL/min (>60); Estimated Creatinine Clearance 65.34 ml/min; Globulin 4.7 g/dL (2.2-4.2); Glucose 90 mg/dL (74-106); Protein, Total 7.7 g/dL (6.4-8.2); Sodium Level 136 mmol/L (136-145)
[2018-01-18] MEDS: 0.9% Normal Saline 1,000 ML 60 ML IV ×2 (09:26→21:35)
[2018-01-18] MEDS: Enoxaparin 40 MG/0.4 ML Syringe SC (11:37)
[2018-01-18] MEDS: Metoprolol(XL)Succ 25 MG Tablet PO ×2 (11:37→21:35)
[2018-01-18] MEDS: Pantoprazole Sodium 20 MG Tablet PO (11:39)
[2018-01-18] MEDS: Acetaminophen 500 MG Tablet 1000 MG PO ×3 (12:30→23:54)
[2018-01-18] MEDS: busPIRone 15 MG TABLET 7.5 MG PO ×2 (12:31→21:35)
[2018-01-18] MEDS: buPROPion (XL) 300 MG TABLET.XL PO (12:31)
[2018-01-19] VITALS (7 sets, daily range): BP systolic 117–158; BP diastolic 65–84; PULSE 56–95; RESP 16–18; TEMP 36.8–37.3; O2SAT 96–100
--- NOTE | 2018-01-19 04:15 | RAD_ITS ---
STUDY: X-RAY - ABDOMEN/PELVIS REASON FOR EXAM: Female, 52 years old. Abdominal distention. Patient has had previous bowel resection. TECHNIQUE: AP supine and upright views of the abdomen and pelvis. COMPARISON: CT of abdomen and pelvis dated January 18, 2018. FINDINGS: Normal visualized lung bases. There is dilated small bowel with maximum transverse dimension of approximately 4.8 cm. Multiple air-fluid levels are visualized. There is no demonstrated free abdominal air. Surgical clips are visible in the right upper quadrant. There is no evidence of organomegaly, mass or pathologic calcifications. Normal soft tissue structures. There are degenerative changes of the lower lumbar spine. RAD/Abd Inc Decub and/or Erect IMPRESSION: Persistent radiographic findings suggesting small bowel obstruction. Electronically Signed: Taylor Bloom MD at 4:51 EDT , Service support ,
[2018-01-19] MEDS: Acetaminophen 500 MG Tablet 1000 MG PO ×2 (05:44→12:38)
--- NOTE | 2018-01-19 06:35 | PCM.PN.SRG ---
Subjective: some flatus, abdomen feeling much better - Physical Exam General: Alert, Oriented x3, Cooperative Lungs: Clear to auscultation, Normal air movement Cardiovascular: Regular rate, Regular Rhythm Abdomen: Bowel Sounds Present, Soft, Non Tender, Hypoactive Bowel Sounds Vital Signs Temp Pulse Resp BP Pulse Ox 98.4 F 56 L 16 136/65 H 96 01/19/18 02:25 01/19/18 02:25 01/19/18 02:25 01/19/18 02:25 01/19/18 02:25 Oxygen Flow Rate (L/min) 6 Oxygen Delivery Method Room Air Weight: 94.6 kg Body Mass Index (BMI) 35.8 Intake and Output for Last 24 Hours 01/17/18 01/18/18 01/19/18 23:59 23:59 23:59 Intake Total 1230 / 1230 600 / 600 Output Total 300 / 300 900 / 900 200 / 200 Balance 930 / 930 -300 / -300 -200 / -200 Laboratory Tests Past 24 Hrs 01/18/18 01/18/18 06:54 06:54 WBC 12.5 H RBC 5.25 Hgb 14.3 Hct 43.8 MCV 83.4 MCH 27.2 MCHC 32.6 RDW 14.6 RDW Differential 44.7 H Plt Count 269 MPV 10.1 Immature Gran % (Auto) 0.200 Neut % (Auto) 82.1 H Lymph % (Auto) 11.7 L [place] % (Auto) 5.8 Eos % (Auto) 0.0 Baso % (Auto) 0.2 Absolute Neuts (auto) 10.3 H Absolute Lymphs (auto) 1.47 Total Counted Not Reportable Sodium 136 Potassium 4.0 Chloride 99 Carbon Dioxide 23.0 Anion Gap 14 BUN 17 Creatinine 0.85 Estim Creat Clear Calc 65.34 Est GFR (MDRD) Af Amer 90 Est GFR (MDRD) Non-Af 74 BUN/Creatinine Ratio 20.0 Glucose 90 Calcium 9.2 Total Bilirubin 0.90 AST 105 H ALT 89 H Alkaline Phosphatase 179 H Total Protein 7.7 Albumin 3.0 L Globulin 4.7 H Albumin/Globulin Ratio 0.6 L Medical Necessity - Tobacco Use Smoking Status: Never smoker Assessment/Plan postoperative day #5 status post laparoscopic low anterior resection and laparoscopic right hemicolectomy for 2 sites of diverticulitis. patient became distended and vomited Thursday night and Sunday morning. CT scan of the abdomen and pelvis was obtained. This was reviewed with etiology. The patient has an ileus/obstructive picture with no signs of leakage from either anastomosis. In fact, both anastomoses appear patent. She was made nothing by mouth except for medications restarted on IV fluids. Overnight, the patient notes some flatus, no further abdominal pain or nausea. Abdominal multiview this morning is still read as an ileus obstructive pattern but there is more air in the transverse colon by my read We'll encourage ambulation. voiding well after Garnica catheter removed. Encourage incentive spirometer use. elevated blood pressure and tachycardic for the last few days. Patient was also noted to be hypertensive preoperatively. while she has not been on antihypertensive medications in the past, she notes that her blood pressure fluctuates. her electrolytes are unremarkable. She is not complaining of pain. We will start metoprolol and follow her BP.
[2018-01-19] MEDS: Metoprolol(XL)Succ 25 MG Tablet PO ×2 (09:52→20:56)
[2018-01-19] MEDS: Pantoprazole Sodium 20 MG Tablet PO (09:52)
[2018-01-19] MEDS: busPIRone 15 MG TABLET 7.5 MG PO ×2 (09:52→20:57)
[2018-01-19] MEDS: Enoxaparin 40 MG/0.4 ML Syringe SC (09:53)
[2018-01-19] MEDS: buPROPion (XL) 300 MG TABLET.XL PO (09:54)
[2018-01-19] MEDS: 0.9% Normal Saline 1,000 ML 60 ML IV (18:12)
--- NOTE | 2018-01-19 18:28 | PCA ---
Patient ambulating in hallways at this time with family.
[2018-01-20] VITALS (8 sets, daily range): BP systolic 94–161; BP diastolic 70–86; PULSE 74–89; RESP 14–16; TEMP 37–37.6; O2SAT 98–100
[2018-01-20] MEDS: Acetaminophen 500 MG Tablet 1000 MG PO ×4 (00:03→17:22)
--- NOTE | 2018-01-20 05:25 | RAD_ITS ---
STUDY: X-RAY - ABDOMEN/PELVIS REASON FOR EXAM: Female, 52 years old. Abdominal distention. TECHNIQUE: AP supine and upright views of the abdomen and pelvis. COMPARISON: 01/19/2018. CT scan abdomen and pelvis 01/18/2018. FINDINGS: Normal visualized lung bases. There is persistent distention of small bowel loops with air-fluid levels. There is no significant paucity of gas in the colon. On CT scan, distended bowel loops are seen to extend to the ileocolonic anastomosis, with no demonstrated ileal narrowing to suggest small bowel obstruction. Findings are consistent with a persistent small bowel ileus. There is no demonstrated free abdominal air. Status post cholecystectomy, with associated surgical clips. Normal soft tissue structures. There are multilevel degenerative changes of the visualized lumbar spine. RAD/Abd Inc Decub and/or Erect IMPRESSION: Persistent small bowel ileus. No significant change from previous x-ray study. Electronically Signed: Roc Marc MD at 6:53 EDT , Service support ,
[2018-01-20 06:47] LABS: Absolute Lymphocyte Count 1.06 X10^3/ul (0.83-4.51); Absolute Neutrophil Count 4.6 X10^3/uL (2.0-7.7); Basophil# 0.02 X10^3/uL; Basophil% 0.3 % (0-1); Hemoglobin 12.5 g/dl (12.0-15.0); Lymphocyte # 1.06 X10^3/ul (4.0); Lymphocyte % 16.8 % (19-41); Mean Corp Hgb Conc 32.9 g/gl (32-36); Mean Corpuscular Volume 82.1 fL (81-99); Monocyte# 0.63 X10^3/uL; Neutrophil % 72.7 % (47-70); Platelet Count 286 K/mm3 (150-450); RBC Distribution Width CV 14.5 % (11.6-14.6); RBC Distribution Width SD 42.8 fl (35.1-43.9); Red Blood Count 4.63 M/mm3 (4.2-5.4); White Blood Count 6.3 K/mm3 (4.4-11.0)
[2018-01-20 06:48] LABS: POSITIVE COUNT NO; POSITIVE DIFFERENTIAL NO; POSITIVE MORPHOLOGY NO
[2018-01-20 07:03] LABS: Anion Gap 13 (5-15); BUN 13 mg/dL (7-18); BUN/Creat Ratio 21.5 RATIO (10-20); Calcium,Total 8.1 mg/dL (8.5-10.1); Chloride 106 mmol/L (98-107); EST Glomerular Filtration Rate 110 mL/min (>60); Est Glom Filt Rate - Afr Amer 133 mL/min (>60); Estimated Creatinine Clearance 92.56 ml/min; Glucose 68 mg/dL (74-106); Potassium 3.7 mmol/L (3.5-5.1); Sodium Level 139 mmol/L (136-145)
--- NOTE | 2018-01-20 08:55 | PCM.PN.SRG ---
Subjective: a liquidy bowel movements and more flatus - Physical Exam General: Alert, Oriented x3, Cooperative Lungs: Clear to auscultation, Normal air movement Cardiovascular: Regular rate, No murmurs Abdomen: Bowel Sounds Present, Soft, Non Tender, Hypoactive Bowel Sounds Vital Signs Temp Pulse Resp BP Pulse Ox 98.6 F 74 15 138/71 H 100 01/20/18 07:20 01/20/18 07:20 01/20/18 07:20 01/20/18 07:20 01/20/18 07:20 Oxygen Flow Rate (L/min) 6 Oxygen Delivery Method Room Air Weight: 94.6 kg Body Mass Index (BMI) 35.8 Intake and Output for Last 24 Hours 01/18/18 01/19/18 01/20/18 23:59 23:59 23:59 Intake Total 600 / 600 2543 / 2543 588 / 588 Output Total 900 / 900 200 / 200 600 / 600 Balance -300 / -300 2343 / 2343 -12 / -12 Laboratory Tests Past 24 Hrs 01/20/18 01/20/18 05:55 05:55 WBC 6.3 RBC 4.63 Hgb 12.5 Hct 38.0 MCV 82.1 MCH 27.0 MCHC 32.9 RDW 14.5 RDW Differential 42.8 Plt Count 286 MPV 11.0 Immature Gran % (Auto) 0.200 Neut % (Auto) 72.7 H Lymph % (Auto) 16.8 L [place] % (Auto) 10.0 Eos % (Auto) 0.0 Baso % (Auto) 0.3 Absolute Neuts (auto) 4.6 Absolute Lymphs (auto) 1.06 Total Counted Not Reportable Sodium 139 Potassium 3.7 Chloride 106 Carbon Dioxide 20.0 L Anion Gap 13 BUN 13 Creatinine 0.60 Estim Creat Clear Calc 92.56 Est GFR (MDRD) Af Amer 133 Est GFR (MDRD) Non-Af 110 BUN/Creatinine Ratio 21.5 H Glucose 68 L Calcium 8.1 L Medical Necessity - Tobacco Use Smoking Status: Never smoker Assessment/Plan postoperative day #6 status post laparoscopic low anterior resection and laparoscopic right hemicolectomy for 2 sites of diverticulitis. patient became distended and vomited Th night and Sunday morning. CT scan of the abdomen and pelvis was obtained. This was reviewed with etiology. The patient has an ileus/obstructive picture with no signs of leakage from either anastomosis. In fact, both anastomoses appear patent. She was made nothing by mouth except for medications restarted on IV fluids. Overnight, the patient notes some flatus, no further abdominal pain or nausea. Abdominal multiview this morning is still read as an ileus obstructive pattern but there is more air in the transverse colon by my read We'll encourage ambulation. voiding well after Garnica catheter removed. Encourage incentive spirometer use. elevated blood pressure and tachycardic for the last few days. Patient was also noted to be hypertensive preoperatively. while she has not been on antihypertensive medications in the past, she notes that her blood pressure fluctuates. her electrolytes are unremarkable. She is not complaining of pain. We will start metoprolol and follow her BP.
[2018-01-20] MEDS: busPIRone 15 MG TABLET 7.5 MG PO ×2 (10:16→21:20)
[2018-01-20] MEDS: Enoxaparin 40 MG/0.4 ML Syringe SC (10:21)
[2018-01-20] MEDS: buPROPion (XL) 300 MG TABLET.XL PO (10:22)
[2018-01-20] MEDS: Pantoprazole Sodium 20 MG Tablet PO (10:22)
[2018-01-20] MEDS: Metoprolol(XL)Succ 25 MG Tablet PO ×2 (10:22→21:20)
[2018-01-20] MEDS: 0.9% Normal Saline 1,000 ML 60 ML IV (10:23)
[2018-01-21] VITALS (8 sets, daily range): BP systolic 132–154; BP diastolic 62–84; PULSE 81–87; RESP 16–20; TEMP 36.6–38; O2SAT 96–99
[2018-01-21] MEDS: 0.9% Normal Saline 1,000 ML 60 ML IV ×2 (00:26→17:56)
--- NOTE | 2018-01-21 05:15 | RAD_ITS ---
STUDY: X-RAY - ABDOMEN/PELVIS REASON FOR EXAM: Female, 52 years old. Abdominal distention. TECHNIQUE: AP supine and upright views of the abdomen and pelvis. COMPARISON: 01/20/2018. FINDINGS: The lung bases are not demonstrated. There is persistent distention of small bowel loops with air-fluid levels. Findings not significantly different from previous study. There is mildly prominent gas in the transverse colon without abnormal distention. There is no demonstrated free abdominal air. The visualized liver, spleen and kidneys are grossly normal in size and morphology. Normal soft tissue structures. Normal visualized osseous structures. RAD/Abd Inc Decub and/or Erect IMPRESSION: Persistent small bowel ileus with gaseous distention not significantly changed. Electronically Signed: Roc Marc MD at 7:54 EDT , Service support ,
[2018-01-21] MEDS: Acetaminophen 500 MG Tablet 1000 MG PO ×3 (07:52→17:53)
[2018-01-21] MEDS: buPROPion (XL) 300 MG TABLET.XL PO (07:56)
[2018-01-21] MEDS: busPIRone 15 MG TABLET 7.5 MG PO ×2 (07:56→21:30)
[2018-01-21] MEDS: Metoprolol(XL)Succ 25 MG Tablet PO ×2 (07:56→21:30)
[2018-01-21] MEDS: Pantoprazole Sodium 20 MG Tablet PO (07:56)
[2018-01-21] MEDS: Enoxaparin 40 MG/0.4 ML Syringe SC (07:56)
[2018-01-21] MEDS: Ondansetron ODT 4 MG Tablet PO (14:37)
[2018-01-21] MEDS: Mag Hydrox/Al Hydrox/Simeth 30 ML UDC PO (18:44)
[2018-01-22] MEDS: Acetaminophen 500 MG Tablet 1000 MG PO ×2 (00:05→09:28)
[2018-01-22 02:40] VITALS: BP 135/87; PULSE 78; RESP 16; TEMP 36.7; O2SAT 97
--- NOTE | 2018-01-22 06:18 | PCM.PN.SRG ---
Subjective: BM and flatus - Physical Exam General: Alert, Oriented x3, Cooperative Lungs: Clear to auscultation, Normal air movement Cardiovascular: Regular rate, No murmurs Abdomen: Bowel Sounds Present, Soft, Non Tender, Hypoactive Bowel Sounds Vital Signs Temp Pulse Resp BP Pulse Ox 98.0 F 78 16 135/87 H 97 01/22/18 02:40 01/22/18 02:40 01/22/18 02:40 01/22/18 02:40 01/22/18 02:40 Oxygen Flow Rate (L/min) 6 Oxygen Delivery Method Room Air Weight: 94.6 kg Body Mass Index (BMI) 35.8 Intake and Output for Last 24 Hours 01/20/18 01/21/18 01/22/18 23:59 23:59 23:59 Intake Total 1592 / 1592 3863 / 3863 1099 / 1099 Output Total 950 / 950 2750 / 2750 900 / 900 Balance 642 / 642 1113 / 1113 199 / 199 Medical Necessity - Tobacco Use Smoking Status: Never smoker Assessment/Plan postoperative day #7 status post laparoscopic low anterior resection and laparoscopic right hemicolectomy for 2 sites of diverticulitis. patient became distended and vomited night and Sunday morning. CT scan of the abdomen and pelvis was obtained. This was reviewed with etiology. The patient has an ileus/obstructive picture with no signs of leakage from either anastomosis. In fact, both anastomoses appear patent. She was made nothing by mouth except for medications restarted on IV fluids. Overnight, the patient notes some flatus, no further abdominal pain or nausea. Abdominal multiview this morning is still read as an ileus obstructive pattern but there is more air in the transverse colon by my read. Now tolerating liquids and multiple BM - WIll D/C on low residue diet We'll encourage ambulation. voiding well after Garnica catheter removed. Encourage incentive spirometer use. elevated blood pressure and tachycardic for the last few days. Patient was also noted to be hypertensive preoperatively. while she has not been on antihypertensive medications in the past, she notes that her blood pressure fluctuates. her electrolytes are unremarkable. She is not complaining of pain. We will start metoprolol and follow her BP.
--- NOTE | 2018-01-22 06:24 | DCINST_ITS ---
Discharge Diet: Light diet - advance as tolerated - after 3 days Discharge Activity: May Drive, May not drive while taking narcotic pain medications. May shower in (days): 0 Lifting Restrictions: 10 pounds Call your doctor if your incision/area has: Continuous Slow Oozing, Sudden Increased Bleeding, Increased Pain/ Swelling, Foul Smelling Discharge, Swelling at the incision site Call your doctor if you observe: Fever of 101 or Higher, Inability to have a bowel movement Allergies/Adverse Reactions: Allergies No Known Allergies Allergy (Verified 01/08/18 10:48) Medications to take at Discharge Buspirone HCl 7.5 mg PO BID 06/12/17 Pantoprazole Sodium [Protonix] 20 mg PO DAILY 06/12/17 buPROPion XL [Wellbutrin Xl] 300 mg PO DAILY 06/12/17 Acetaminophen [Tylenol] 1,000 mg PO Q6 tablet 01/22/18 Enoxaparin [Lovenox] 40 mg SC DAILY syringe 01/22/18 Insulin Lispro [Humalog KwikPen] 0 unit SC Q4H PRN PRN insuln.pen 01/22/18 Mag Hydrox/Al Hydrox/Simeth [Mylanta II] 30 ml PO Q4H PRN PRN udc 01/22/18 Metoprolol(XL)Succ [Toprol Xl (Beta Paola)] 25 mg PO BID #60 tab 01/22/18 The following prescriptions were given: Metoprolol(XL)Succ [Toprol Xl (Beta Paola)] 25 mg PO BID #60 tab Primary Care Physician: Radha Lujan NP-C [Primary Care Provider] - Test Results: Test results from this visit will be discussed in further detail at your follow- up appointment, if applicable. Please Follow Up With: Nelson Helton MD When: at 2pm
--- NOTE | 2018-01-22 06:25 | PCM.DC.SUM ---
Discharge Date and Diagnosis Date of Admission: 01/14/18 Date of Discharge: 01/22/18 - Primary Discharge Diagnosis diverticular stricture Hospital Course and Treatment Summary of Care Provided: The patient is a 52 year old F with both right-sided diverticulitis and a left sided diverticular stricture. She underwent a laparoscopic right hemicolectomy and laparoscopic low anterior resection. Patient was maintained on the ERAS for occult postoperative with minimal narcotics and early oral fluid administration. patient did have more of an ileus developed abdominal distention and vomiting on postoperative day 4. She was maintained nothing by mouth and supported. She had return of bowel functions able to be discharged to home on postoperative day 8. Discharge Diet: Light diet - advance as tolerated - after 3 days Discharge Activity: May Drive, May not drive while taking narcotic pain medications. May shower in (days): 0 Call your doctor if your incision/area has: Continuous Slow Oozing, Sudden Increased Bleeding, Increased Pain/ Swelling, Foul Smelling Discharge, Swelling at the incision site Call your doctor if you observe: Fever of 101 or Higher, Inability to have a bowel movement Home Medications: Medications to take at Discharge Buspirone HCl 7.5 mg PO BID 06/12/17 Pantoprazole Sodium [Protonix] 20 mg PO DAILY 06/12/17 buPROPion XL [Wellbutrin Xl] 300 mg PO DAILY 06/12/17 Acetaminophen [Tylenol] 1,000 mg PO Q6 tablet 01/22/18 Enoxaparin [Lovenox] 40 mg SC DAILY syringe 01/22/18 Insulin Lispro [Humalog KwikPen] 0 unit SC Q4H PRN PRN insuln.pen 01/22/18 Mag Hydrox/Al Hydrox/Simeth [Mylanta II] 30 ml PO Q4H PRN PRN udc 01/22/18 Metoprolol(XL)Succ [Toprol Xl (Beta Paola)] 25 mg PO BID #60 tab 01/22/18 Following Prescrptions Were Given to Patient: Metoprolol(XL)Succ [Toprol Xl (Beta Paola)] 25 mg PO BID #60 tab Primary Care Physician: Radha Lujan NP-C [Primary Care Provider] - Please Follow Up With: Nelson Helton MD When: at 2pm Medical Necessity - Tobacco Use Smoking Status: Never smoker Meaningful Use Info Meaningful Use Diagnoses (Choose all that apply): None applicable
[2018-01-22 07:42] VITALS: BP 142/84; PULSE 82; RESP 18; TEMP 37; O2SAT 98
[2018-01-22 07:44] VITALS: PULSE 82
[2018-01-22] MEDS: Metoprolol(XL)Succ 25 MG Tablet PO (07:44)
[2018-01-22] MEDS: buPROPion (XL) 300 MG TABLET.XL PO (07:45)
[2018-01-22] MEDS: Pantoprazole Sodium 20 MG Tablet PO (07:45)
[2018-01-22] MEDS: busPIRone 15 MG TABLET 7.5 MG PO (07:45)
== END 2018-01-22 09:32 | disposition home or self-care (01) | DRG 330 ==
LOC: ACINP 05:43 → MS3 11:03
PROVIDERS: Admitting Provider Surgery; Family Provider Nurse Practitioner Family; PCP Nurse Practitioner Family; Visit Provider Surgery
PROC: 0DTN4ZZ Resection of Sigmoid Colon, Percutaneous Endoscopic Approach (ICD-10-PCS; principal; 2018-01-14 07:05)
PROC: 0DTN0ZZ Resection of Sigmoid Colon, Open Approach (ICD-10-PCS; CPT 44204; 2018-01-14 07:05)
DX: K57.30 Diverticulosis of large intestine without perforation or abscess without bleeding (principal); K56.7 Ileus, unspecified; N83.201 Unspecified ovarian cyst, right side; K57.32 Diverticulitis of large intestine without perforation or abscess without bleeding
CPT/HCPCS: 36415; 74019; 74176; 80048; 80053; 82962; 83735; 84100; 85025; 85027; 88304; 88305; 88307; 93005; 94762; J7030; J7050; J7120; J2405